=== PATIENT | male | born 1960 | race African-American/Black ===

== ENCOUNTER 2022-03-30 02:59 | Emergency (ER) | payer SELFPAY ==
[~2022-03-30] VITALS: Ht 188 cm; Wt 82.0 kg
[2022-03-30] MEDS ORDERED: ONDANSETRON HCL 4MG/2ML INJ IV STA (03:47)
[2022-03-30] MEDS ORDERED: HYDROMORPHONE HCL/PF 2MG/ML CPJ IV ONE ×2 (04:00→05:15)
[2022-03-30] MEDS ORDERED: SODIUM CHLORIDE 0.9% 1,000 ML IV ONE (04:00)
[2022-03-30 04:14] LABS: BASOPHILS % 0.6 % (0.0-2.0); EOSINOPHILS % 0.6 % (0.0-5.0); HEMATOCRIT. 35.6 % (42.0-52.0); HEMOGLOBIN. 11.8 g/dL (14.0-18.0); LYMPHOCYTES % 17.9 % (20.0-50.0); MEAN CORPUSCULAR HEMOGLOBIN 28.2 pg (28.0-32.0); MEAN PLATELET VOLUME 8.7 fl (7.4-10.4); MONOCYTES % 6.6 % (2.0-8.0); NEUTROPHILS % 74.3 % (40.0-76.0); PLATELET 176 x1000/uL (130-400); RED BLOOD CELL COUNT 4.19 mill/uL (4.7-6.1); RED CELL DISTRIBUTION WIDTH 14.1 % (11.6-14.6)
[2022-03-30 04:23] LABS: CHLORIDE 102 mEq/L (98-107)
[2022-03-30 04:29] LABS: PROTHROMBIN TIME 10.7 sec (9.6-11.0)
[2022-03-30] MEDS ORDERED: ESMOLOL 2500MG PREMIX 250 ML IV ONE ×3 (04:45→05:00)
[2022-03-30] MEDS ORDERED: IOHEXOL-350 100 ML BOTTLE ONE (04:54)
[2022-03-30 06:55] VITALS: BP 120/90
== END 2022-03-30 06:53 | disposition short-term general hospital (02) ==
LOC: ER 03:09 → CANBEDREQ 04-01 09:27
DX: I71.40 Abdominal aortic aneurysm, without rupture, unspecified (principal); I72.3 Aneurysm of iliac artery
CPT/HCPCS: 36415; 71045; 71275; 74174; 80053; 83605; 83690; 84484; 85025; 85610; 86850; 86900; 86901; 93005; 96361; 96374; 96375; 96376; 99291; J1170; J2405; J3490; J7030; Q9967